=== PATIENT | male | born 1980 | race Caucasian/White ===

== ENCOUNTER 2019-03-21 11:10 | Emergency (ER) | payer SELFPAY ==
[~2019-03-21] VITALS: Ht 167.6 cm; Wt 77.3 kg
[2019-03-21 11:24] VITALS: BP 143/89; TEMP 97.8
[2019-03-21 13:21] VITALS: PULSE 69
== END 2019-03-21 13:21 | disposition home or self-care (01) ==
LOC: COL.ER 11:10
DX: S61.512A Laceration without foreign body of left wrist, initial encounter (principal); W23.0XXA Caught, crushed, jammed, or pinched between moving objects, initial encounter; Y92.59 Other trade areas as the place of occurrence of the external cause

== ENCOUNTER → 2019-03-29 | Outpatient (CLI) | payer SELFPAY ==
[2019-03-29 14:00] VITALS: BP 127/74; PULSE 74; TEMP 97.8
== END ==
LOC: COL.ER 13:27
DX: Z48.02 Encounter for removal of sutures (principal)